=== PATIENT | female | born 1945 | race Caucasian/White ===

== ENCOUNTER → 2017-03-03 | Outpatient (CLI) | payer OTHER ==
--- NOTE | ~2017-03-03 | BD1 ---
[facility] A Service of [facility] RADIOLOGY TEXT RESULTS PATIENT: ELLI GARCIA LOCATION: [facility] : 45 UNIT #: [id number] AGE: [address]: Kristian Chris MD SEX: F ORDER DR: [id number] [address] [address] [id number] O MR#: [id number] Acc #: [id number] NAME: ELLI GARCIA : 1945 SEX: F STUDY DATE/TIME: 03/03/2017 11:25 UNIT: [facility] ROOM: STUDY DESCRIPTION: BD Dexa Bone Dens 1+ Site Attending Physician: Kristian Chris M.D. Referring Physician: Kristian Chris M.D. Ordering Physician: Kristian Chris M.D. Primary Care Physician: Kristian Chris M.D. MEDICAL IMAGING REPORT This report is preliminary unless electronic signature is present. EXAM DXA scan, 03/03/2017 HISTORY Status post menopause with no hormone replacement therapy. Osteopenia. Arthritis. FINDINGS Bone mineral density in the left femoral neck was 0.905 g/cm2 which is 1 standard deviation below the mean when compared to young adult reference population which is characteristic of osteopenia. This is 0.3 standard deviations above the mean when compared to the age-matched population. Bone mineral density in the right femoral neck was 0.879 g/cm2 which is 1.1 standard deviations below the mean when compared to the young adult reference population which is characteristic of osteopenia. This is 0.2 standard deviations above the mean when compared to the age-matched population. Bone mineral density in the distal left forearm radius was 0.711 g/cm2 which is 2 standard deviations below the mean when compared to the young adult reference population which is characteristic of osteopenia. This is 0 standard deviations from the mean when compared to the age-matched population. IMPRESSION Bone mineral density in the hips bilaterally and the left forearm characteristic of osteopenia. Dictated by... Eddy Pang M.D. [facility] A Service of [facility] RADIOLOGY TEXT RESULTS PATIENT: ELLI GARCIA LOCATION: [facility] : [birth year] UNIT #: [id number] AGE: [address]: Kristian Chris MD SEX: F ORDER DR: THIS IS AN ELECTRONICALLY VERIFIED REPORT Eddy Pang M.D. at 03/04/2017 10:32 AM MANUEL/morgan TD: 03/03/2017 22:49 JOB #: [id number] MEDICAL IMAGING REPORT Page 1 of 1
== END | disposition home or self-care (01) ==
LOC: SRAD 02-27 11:30
DX: M81.0 Age-related osteoporosis without current pathological fracture (principal)
CPT/HCPCS: 77080